=== PATIENT | female | born 1995 | race Caucasian/White ===

== ENCOUNTER 2019-03-06 12:35 | Emergency (ER) | payer MEDICAID ==
[~2019-03-06] VITALS: Ht 165.1 cm; Wt 90.7 kg
[2019-03-06 12:44] VITALS: BP 106/65
--- NOTE | 2019-03-06 13:07 | PHYS DOC ---
Adult General Chief Complaint Chief Complaint: BREAST PROBLEM HPI HPI 23-year-old female presents with breast pain. The patient just had a baby 3 weeks ago. She has not been breast-feeding. She developed some swelling and one of her breasts today. She decided she would try breast-feeding. There was some e xpulsion of symptoms, but she still has the swelling and pain. She denies fever or chills. She did not call her OB. Review of Systems Review of Systems Constitutional: Denies fever or chills [] Eyes: Denies change in visual acuity, redness, or eye pain [] HENT: Denies nasal congestion or sore throat [] Respiratory: Denies cough or shortness of breath [] Cardiovascular: No additional information not addressed in HPI [] GI: Denies abdominal pain, nausea, vomiting, bloody stools or diarrhea [] : Denies dysuria or hematuria [] Musculoskeletal: Breast pain[] Integument: Denies rash or skin lesions [] Neurologic: Denies headache, focal weakness or sensory changes [] Endocrine: Denies polyuria or polydipsia [] All other systems were reviewed and found to be within normal limits, except as documented in this note. Physical Exam Physical Exam Constitutional: Well developed, well nourished, no acute distress, non-toxic appearance. [] HENT: Normocephalic, atraumatic, bilateral external ears normal, oropharynx moist, no oral exudates, nose normal. [] Eyes: PERRLA, EOMI, conjunctiva normal, no discharge. [] Neck: Normal range of motion, no tenderness, supple, no stridor. [] Cardiovascular:Heart rate regular rhythm, no murmur [] Lungs & Thorax: Bilateral breath sounds clear to auscultation [] Abdomen: Bowel sounds normal, soft, no tenderness, no masses, no pulsatile masses. [] Skin: Warm, dry, no erythema, no rash. [] Back: No tenderness, no CVA tenderness. [] Extremities: No tenderness, no cyanosis, no clubbing, ROM intact, no edema. [] Neurologic: Alert and oriented X 3, normal motor function, normal sensory function, no focal deficits noted. [] Psychologic: Affect normal, judgement normal, mood normal. : Right breast medial side tender to the touch without skin changes, erythema, warmth, palpable mass. Nipple ring present with no discharge.[] EKG EKG [] Radiology/Procedures Radiology/Procedures [] Course & Med Decision Making Course & Med Decision Making Pertinent Labs and Imaging studies reviewed. (See chart for details) I do not see signs of infection of the patient's breast. I have advised that she talk to her OB for further guidance. She can take ibuprofen and Tylenol for pain. I advised her on warning signs to look for for cellulitis. She stated verbal understanding. She is stable for discharge at this time. [] Dragon Disclaimer Dragon Disclaimer This electronic medical record was generated, in whole or in part, using a voice recognition dictation system. Departure Departure: Impression: Primary Impression: Breast pain, right Disposition: 01 HOME, SELF-CARE Condition: STABLE Referrals: PCP,NO (PCP) Patient Instructions: Breast Tenderness MARTIN WHITE DO March 06, 2019 13:07
== END 2019-03-06 13:18 | disposition home or self-care (01) ==
LOC: ER 12:35
DX: O90.89 Other complications of the puerperium, not elsewhere classified (principal); N64.4 Mastodynia
CPT/HCPCS: 99281